=== PATIENT | female | born 1965 | race African-American/Black ===

== ENCOUNTER 2022-05-18 16:38 | Emergency (ER) | payer SELFPAY ==
[~2022-05-18] VITALS: Ht 167.6 cm; Wt 96.0 kg
[2022-05-18 16:57] VITALS: BP 183/106
[2022-05-18] MEDS ORDERED: MEPERIDINE HCL IM ONE (20:45)
[2022-05-18] MEDS ORDERED: MEPERIDINE HCL/PF 25MG/ML CPJ IM NR (21:00)
[2022-05-18] MEDS ORDERED: LIDOCAINE 5% PATCH TOP SCH (23:45)
[2022-05-18] MEDS ORDERED: LIDO700A30 TP (23:48)
== END 2022-05-19 00:09 | disposition home or self-care (01) ==
LOC: ER 16:49
DX: M54.9 Dorsalgia, unspecified (principal); M54.30 Sciatica, unspecified side; E11.9 Type 2 diabetes mellitus without complications; M32.9 Systemic lupus erythematosus, unspecified; D64.9 Anemia, unspecified; Z89.429 Acquired absence of other toe(s), unspecified side
CPT/HCPCS: 96372; 99283; J2175